=== PATIENT | male | born 1965 | race African-American/Black ===

== ENCOUNTER 2023-08-16 19:21 | Emergency (ER) | payer OTHER | END 2023-08-16 22:18 | disposition home or self-care (01) | LOC: NAV ERS 19:21 | DX: S16.1XXA Strain of muscle, fascia and tendon at neck level, initial encounter (principal); M25.512 Pain in left shoulder; M25.511 Pain in right shoulder; M54.50 Low back pain, unspecified; F17.210 Nicotine dependence, cigarettes, uncomplicated; V43.52XA Car driver injured in collision with other type car in traffic accident, initial encounter | CPT/HCPCS: 72040; 72100 ==

== ENCOUNTER 2023-08-26 20:03 | Emergency (ER) | payer OTHER | END 2023-08-26 22:10 | disposition home or self-care (01) | LOC: NAV ERS 20:03 | DX: S13.4XXA Sprain of ligaments of cervical spine, initial encounter (principal); S29.012A Strain of muscle and tendon of back wall of thorax, initial encounter; S39.012A Strain of muscle, fascia and tendon of lower back, initial encounter; F17.290 Nicotine dependence, other tobacco product, uncomplicated; V43.52XA Car driver injured in collision with other type car in traffic accident, initial encounter; Y92.410 Unspecified street and highway as the place of occurrence of the external cause | CPT/HCPCS: 72125; 72128; 72131 ==